=== PATIENT | female | born 1955 | race Caucasian/White ===

== ENCOUNTER 2021-03-11 11:57 | Inpatient (IN) | payer OTHER ==
[~2021-03-11] VITALS: Ht 162.6 cm; Wt 59.0 kg
[~2021-03-11 11:57] MED LIST: ADVAIR 250-501 EACH INH; ALPRAZOLAM0.5 MG PO; CENTRUM SILVER1 EAC1 PO; CLARITIN 10MG T10 MG PO; DILACOR XR PO; FLEXERIL 10 MG10 MG PO; FLONASE ALLER15.8 ML; IPRAT-ALBUT 0.5-3 ML INH; LAMOTRIGINE200 MG PO; LEVOTHYROXINE125 MCG PO; LIPITOR TAB 2020 MG PO; LISINOPRIL5 MG PO; LITHIUM CARBON300 M1 PO; MAGIC MOUTH WASH PO; MAGIC MOUTHWASH PO; MEDROL DOSEPAK 24 MG PO; MONTELUKAST SOD10 MG PO; NORFLEX 100 MG100 MG PO; OMNICEF 300 MG300 MG PO; PERPHENAZINE4 MG PO; RANITIDINE HCL300 MG PO; SYMMETREL 100100 MG PO; TRAZODONE HCL50 MG PO; VIT E PO; Voltaren Gel 1% TOP; XANAX1 MG PO
[2021-03-11 12:25] LABS: HEMOGLOBIN 11.7 gm/dl (12.3-15.3); RED BLOOD COUNT 3.79 M/UL (4.00-5.10); WHITE BLOOD COUNT 10.2 K/UL (4.5-11.0)
[2021-03-11 12:47] LABS: BUN/CREATININE RATIO 20 (0-10)
[2021-03-11] MEDS ORDERED: LAMICTAL100 MG PO (14:23)
[2021-03-11] MEDS ORDERED: HYDROXYZINE HCL10 MG PO (14:23)
[2021-03-11] MEDS ORDERED: HYDROCHLOROTH12.5 MG PO (14:23)
[2021-03-11] MEDS ORDERED: DILTIAZEM 24HR180 M1 PO (14:24)
[2021-03-11] MEDS ORDERED: PERPHENAZINE4 MG PO (14:24)
[2021-03-11] MEDS ORDERED: SYNTHROID 150150 MCG PO (14:25)
[2021-03-11] MEDS ORDERED: VITAMIN D21250 MCG PO (14:25)
[2021-03-11] MEDS ORDERED: CLARITIN 10MG T10 MG PO (14:25)
[2021-03-11] MEDS ORDERED: CARVEDILOL3.125 MG PO (14:26)
[2021-03-11] MEDS ORDERED: AMANTADINE100 M1 PO (14:26)
[2021-03-11] MEDS ORDERED: ALPRAZOLAM0.5 MG PO (14:26)
[2021-03-11] MEDS ORDERED: MONTELUKAST SOD10 MG PO (14:27)
[2021-03-11] MEDS ORDERED: LISINOPRIL2.5 MG PO (14:27)
[2021-03-11] MEDS ORDERED: PROAIR HFA8.5 GM INH (14:27)
[2021-03-11] MEDS ORDERED: COLACE100 MG PO (14:28)
[2021-03-11] MEDS ORDERED: STIOLTO RESPIMAT4 GM INH (14:29)
[2021-03-12 04:43] LABS: HEMOGLOBIN 11.5 gm/dl (12.3-15.3); RED BLOOD COUNT 3.78 M/UL (4.00-5.10); WHITE BLOOD COUNT 9.8 K/UL (4.5-11.0)
[2021-03-12] MEDS ORDERED: CARVEDILOL6.25 MG PO (12:26)
== END 2021-03-12 13:05 | disposition home or self-care (01) | DRG 683 ==
LOC: ER1 11:57 → CDU 13:55
PROVIDERS: Emergency Medicine; ADMIT Internal Medicine
DX: N17.9 Acute kidney failure, unspecified (principal); J96.11 Chronic respiratory failure with hypoxia; I12.9 Hypertensive chronic kidney disease with stage 1 through stage 4 chronic kidney disease, or unspecified chronic kidney disease; F17.200 Nicotine dependence, unspecified, uncomplicated; N18.30 Chronic kidney disease, stage 3 unspecified; M54.2 Cervicalgia; G25.0 Essential tremor; I45.10 Unspecified right bundle-branch block; R00.1 Bradycardia, unspecified; E03.9 Hypothyroidism, unspecified; E11.22 Type 2 diabetes mellitus with diabetic chronic kidney disease; F32.9 Major depressive disorder, single episode, unspecified; G47.33 Obstructive sleep apnea (adult) (pediatric); J44.9 Chronic obstructive pulmonary disease, unspecified; I48.91 Unspecified atrial fibrillation; Z20.822 Contact with and (suspected) exposure to COVID-19; I25.10 Atherosclerotic heart disease of native coronary artery without angina pectoris; R29.6 Repeated falls; Z79.82 Long term (current) use of aspirin; Z98.51 Tubal ligation status; Z90.49 Acquired absence of other specified parts of digestive tract; Z98.41 Cataract extraction status, right eye; Z98.42 Cataract extraction status, left eye; Z82.49 Family history of ischemic heart disease and other diseases of the circulatory system; Z91.19 Patient's noncompliance with other medical treatment and regimen; Z79.899 Other long term (current) drug therapy
CPT/HCPCS: ECHO; 70450; 71045; 72125; 80053; 82550; 82553; 82962; 83036; 83605; 83735; 83874; 83880; 84439; 84443; 84484; 85025; 85027; 85610; 85730; 87040; 93005; 93306; 99285; J1650; U0002

== ENCOUNTER → 2021-05-26 | Outpatient (CLI) | payer OTHER ==
[~2021-05-26] MED LIST changes: +AMANTADINE100 M1 PO; +CARVEDILOL3.125 MG PO; +CARVEDILOL6.25 MG PO; +COLACE100 MG PO; +DILTIAZEM 24HR180 M1 PO; +HYDROCHLOROTH12.5 MG PO; +HYDROXYZINE HCL10 MG PO; +LAMICTAL100 MG PO; +LISINOPRIL2.5 MG PO; +PROAIR HFA8.5 GM INH; +STIOLTO RESPIMAT4 GM INH; +SYNTHROID 150150 MCG PO; +VITAMIN D21250 MCG PO
== END ==
LOC: HEART 5 08:09
DX: I20.9 Angina pectoris, unspecified (principal); R55 Syncope and collapse
CPT/HCPCS: 78452; A9502; J2785